=== PATIENT | female | born 2000 | race Caucasian/White ===

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

== ENCOUNTER 2019-07-19 10:18 | Emergency (ER) | payer OTHER ==
[2019-07-19 10:41] VITALS: BP 108/54
[2019-07-19] MEDS ORDERED: NORMAL SALINE 1000 ML 1,000 ML IV ONE (11:31)
--- NOTE | 2019-07-19 11:34 | ER Document Report ---
ED Medical Screen (RME) - General Chief Complaint: Abdominal Pain Stated Complaint: ABDOMINAL PAIN Time Seen by Provider: 07/19/19 11:24 Notes: Patient is a 18-year-old female who presents to the emergency department with a chief complaint of abdominal pain. Patient reports last night she had a spicy chicken sandwich from [employer]. Patient reports around 4 AM she woke up with right lower quadrant pain. Patient reports she has vomited once and had 4 episodes of diarrhea. Patient denies blood in the diarrhea reports this is more of a caramel liquidy color. Patient reports her last menstrual cycle was June 25. Patient denies vaginal bleeding or discharge. Patient reports her family did have similar symptoms with a stomach virus about 2 weeks ago. Patient reports that she has had similar discomfort in the past and was told she was having bowel spasming, but at that time she was not having vomiting or diarrhea. TRAVEL OUTSIDE OF THE [place] IN LAST 30 DAYS: No - Related Data Allergies/Adverse Reactions: No Known Allergies Allergy (Verified 04/14/17 11:23) Past Medical History Renal/ Medical History: Denies: Hx Peritoneal Dialysis Past Surgical History: Reports: Hx Myringotomy - Immunizations Immunizations up to date: Yes Hx Diphtheria, Pertussis, Tetanus Vaccination: Yes Physical Exam - Vital signs Vitals: Temp Pulse Resp BP Pulse Ox 98.1 F 95 20 108/54 L 100 07/19/19 10:40 07/19/19 10:40 07/19/19 10:40 07/19/19 10:40 07/19/19 10:40 - Abdominal Inspection: Normal Distension: No distension Bowel sounds: Normal Tenderness: Tender - Right mid abdominal tenderness with palpation. Organomegaly: No organomegaly Course - Re-evaluation Re-evalutation: 07/19/19 11:34 We will obtain basic labs as well as urinalysis and urine . Will initiate IV fluids. Patient will require a thorough abdominal examination when placed into a room. I have greeted and performed a rapid initial assessment of this patient. A comprehensive ED assessment and evaluation of the patient, analysis of test results and completion of the medical decision making process will be conducted by additional ED providers. - Vital Signs Vital signs: Temp Pulse Resp BP Pulse Ox 98.1 F 95 20 108/54 L 100 07/19/19 10:40 07/19/19 10:40 07/19/19 10:40 07/19/19 10:40 07/19/19 10:40
[2019-07-19 12:21] LABS: HEMATOCRIT 45.7 % (36.0-47.0); HEMOGLOBIN 15.5 g/dL (12.0-15.5); MEAN CORPUSCULAR HEMOGLOBIN 30.2 pg (27.0-33.4); MEAN CORPUSCULAR VOLUME 89 fl (80-97); PLATELET COUNT 215 10^3/uL (150-450); RED BLOOD COUNT 5.15 10^6/uL (3.72-5.28); RED CELL DISTRIBUTION WIDTH 12.7 % (11.5-14.0); WHITE BLOOD COUNT 11.7 10^3/uL (4.0-10.5)
[2019-07-19 12:31] LABS: APPEARANCE,URINE CLOUDY; BILIRUBIN,URINE NEGATIVE (NEGATIVE); COLOR,URINE AMBER; GLUCOSE, URINE NEGATIVE (NEGATIVE); KETONES,URINE 20 mg/dL (NEGATIVE); LEUKOCYTE ESTERASE,URINE MODERATE (NEGATIVE); NITRITE,URINE NEGATIVE (NEGATIVE); PROTEIN,URINE 100 mg/dL (NEGATIVE); URINE SPECIFIC GRAVITY 1.035; UROBILINOGEN,URINE NEGATIVE mg/dL (<2.0)
[2019-07-19 12:37] LABS: ALKALINE PHOSPHATASE 69 U/L (38-126); ANION GAP 12 (5-19); ASPARTATE AMINO TRANSFERASE 26 U/L (14-36); BILIRUBIN,TOTAL 1.7 mg/dL (0.2-1.3); BLOOD UREA NITROGEN 15 mg/dL (7-20); CALCIUM 10.1 mg/dL (8.4-10.2); CARBON DIOXIDE 26 mmol/L (22-30); CHLORIDE 103 mmol/L (98-107); GLUCOSE 104 mg/dL (75-110); POTASSIUM 4.8 mmol/L (3.6-5.0); TOTAL PROTEIN 7.8 g/dL (6.3-8.2)
[2019-07-19 12:44] LABS: ABSOLUTE LYMPHOCYTES# (MANUAL) 0.2 10^3/uL (0.5-4.7); ABSOLUTE MONOCYTES # (MANUAL) 0.6 10^3/uL (0.1-1.4); BASOPHILS % (MANUAL) 0 % (0-2); EOSINOPHILS % (MANUAL) 1 % (0-6); LYMPHOCYTES % (MANUAL) 2 % (13-45); MONOCYTES % (MANUAL) 5 % (3-13); SEGMENTED NEUTROPHILS % (MAN) 92 % (42-78); TOTAL CELLS COUNTED 100
[2019-07-19 12:45] LABS: PLATELET COMMENT ADEQUATE
[2019-07-19] MEDS ORDERED: KETOROLAC TROMETHAMINE INJ/PF 30 MG/1 ML SDV IV ONE (13:31)
[2019-07-19] MEDS ORDERED: CEFTRIAXONE INJ 1000 MG VIAL IV ONE (13:32)
--- NOTE | 2019-07-19 13:39 | ER Document Report ---
ED General - General Chief Complaint: Abdominal Pain Stated Complaint: ABDOMINAL PAIN Time Seen by Provider: 07/19/19 11:24 Primary Care Provider: MEME RONQUILLO MD [Primary Care Provider] - Follow up as needed Mode of Arrival: Ambulatory Information source: Parent Notes: 18-year-old female arrives by POV with her mother's courtesy car driver. Patient reports she awoke at 0400 with vomiting x4 and diarrhea x4. Patient had similar symptoms 2 weeks ago without vomiting or diarrhea but only cramping belly. She points to her right lower quadrant as being mainly painful. She still has her appendix. Her sister who lives in [place] had a virus 2 weeks ago with nausea vomiting diarrhea and abdominal pain but patient otherwise was not experiencing the same symptoms. The patient ate the same foods everyone else ate over the past 2 days. Patient denies any sore throat bloody diarrhea but reports her stools are liquidy and syrupy. She denies any dysuria. CBC and CMP and urinalysis were done prior to my arrival with positive UTI and elevated WBC count. TRAVEL OUTSIDE OF THE [place] IN LAST 30 DAYS: No COUNTRY TRAVELED TO/FROM: No foreign travel or exposure to foreign individuals or sick people other than sister - HPI Onset: This morning Onset/Duration: Sudden Quality of pain: Achy Severity: Moderate Pain Level: 5 Associated symptoms: Diarrhea, Vomiting Exacerbated by: Standing - The Relieved by: Remaining still Similar symptoms previously: No Recently seen / treated by doctor: No - Related Data Allergies/Adverse Reactions: No Known Allergies Allergy (Verified 04/14/17 11:23) Past Medical History - General Information source: Patient - With no, Parent - Parent as courtesy car driver - Social History Smoking Status: Unknown if Ever Smoked Cigarette use (# per day): No Chew tobacco use (# tins/day): No Smoking Education Provided: No Frequency of alcohol use: None Drug Abuse: None Lives with: Family Family History: Arthritis, CAD, Hyperlipidemia, Hypertension, Malignancy Patient has suicidal ideation: No Patient has homicidal ideation: No - Past Medical History Cardiac Medical History: Reports: None Pulmonary Medical History: Reports: None EENT Medical History: Reports: None Neurological Medical History: Reports: None Endocrine Medical History: Reports: None Renal/ Medical History: Reports: None. Denies: Hx Peritoneal Dialysis Malignancy Medical History: Reports: None GI Medical History: Reports: None Musculoskeletal Medical History: Reports None Skin Medical History: Reports None Past Surgical History: Reports: Hx Myringotomy - Immunizations Immunizations up to date: Yes Hx Diphtheria, Pertussis, Tetanus Vaccination: Yes Review of Systems - Review of Systems Constitutional: Malaise, Weakness EENT: No symptoms reported Cardiovascular: No symptoms reported Respiratory: No symptoms reported Gastrointestinal: Abdominal pain, Diarrhea, Nausea, Vomiting, Poor appetite Genitourinary: No symptoms reported Female Genitourinary: No symptoms reported Musculoskeletal: No symptoms reported Skin: No symptoms reported Hematologic/Lymphatic: No symptoms reported Neurological/Psychological: No symptoms reported Physical Exam - Vital signs Vitals: Temp Pulse Resp BP Pulse Ox 98.1 F 95 20 108/54 L 100 07/19/19 10:40 07/19/19 10:40 07/19/19 10:40 07/19/19 10:40 07/19/19 10:40 Interpretation: Normal - General General appearance: Alert In distress: None - Respiratory Respiratory status: No respiratory distress Chest status: Nontender Breath sounds: Normal Chest palpation: Normal - Cardiovascular Rhythm: Regular Heart sounds: Normal auscultation Murmur: No Friction rub: No Mayuri's crunch: No - Abdominal Inspection: Normal Distension: No distension Bowel sounds: Hyperactive Tenderness: Tender, Other - Right lower quadrant abdominal pain with negative psoas or obturator sign - Back Back: Normal - Extremities General upper extremity: Normal inspection General lower extremity: Normal inspection - Neurological Neuro grossly intact: Yes Cognition: Normal Orientation: AAOx4 Carlos Coma Scale Eye Opening: Spontaneous Carlos Coma Scale Verbal: Oriented Course - Vital Signs Vital signs: Temp Pulse Resp BP Pulse Ox 98.1 F 95 20 108/54 L 100 07/19/19 10:40 07/19/19 10:40 07/19/19 10:40 07/19/19 10:40 07/19/19 10:40 - Laboratory Result Diagrams: 07/19/19 12:12 07/19/19 12:12 Laboratory results interpreted by me: 07/19/19 07/19/19 07/19/19 12:12 12:12 12:12 WBC 11.7 H Seg Neuts % (Manual) 92 H Lymphocytes % (Manual) 2 L Abs Neuts (Manual) 10.8 H Abs Lymphs (Manual) 0.2 L Total Bilirubin 1.7 H Urine Protein 100 H Urine Ketones 20 H Ur Leukocyte Esterase MODERATE H - Diagnostic Test Radiology reviewed: Reports reviewed - CT results as per radiology with enterocolitis Critical Care Note - Critical Care Note Total time excluding time spent on procedures (mins): 90 Comments: Patient was advised to off work off school and also no milk or meat products for 24 hours and Discharge - Discharge Clinical Impression: Gastroenteritis, Gastroenteritis due to norovirus Abdominal pain Qualifiers: Abdominal location: right lower quadrant Qualified Code(s): R10.31 - Right lower quadrant pain UTI (urinary tract infection) Qualifiers: Urinary tract infection type: site unspecified Hematuria presence: without hematuria Qualified Code(s): N39.0 - Urinary tract infection, site not specified Condition: Good Disposition: HOME, SELF-CARE Additional Instructions: Avoid milk and meat products for 24 hours; adhere to brat diet bananas rice applesauce toast caridad cody crackers; avoid contacts for at least 1 to 3 weeks b ecause of viral shedding from norovirus; take medicines as directed and off school off work as directed; get urine rechecked for UTI late this week Prescriptions: Lactobacillus Acidophilus/Pect [Acidophilus-Pectin Capsule] 1 each PO BID PRN #1 bottle PRN Reason: Ondansetron [Zofran Odt 4 mg Tablet] 1 - 2 tab PO Q4H PRN #15 tab.rapdis PRN Reason: For Nausea/Vomiting Forms: Return to Work, Return to School Referrals: MEME RONQUILLO MD [Primary Care Provider] - Follow up as needed
--- NOTE | 2019-07-19 14:47 | RADIOLOGY REPORT (SQ) ---
EXAM DESCRIPTION: CT ABD/PELVIS WITH IV ONLY COMPLETED DATE/TIME: 07/19/2019 2:18 pm REASON FOR STUDY: pain COMPARISON: None. TECHNIQUE: CT scan of the abdomen and pelvis performed using helical scanning technique with dynamic intravenous contrast injection. No oral contrast. Images reviewed with lung, soft tissue, and bone windows. Reconstructed coronal and sagittal MPR images reviewed. Delayed images for evaluation of the urinary system also acquired. All images stored on PACS. All CT scanners at this facility use dose modulation, iterative reconstruction, and/or weight based d osing when appropriate to reduce radiation dose to as low as reasonably achievable (ALARA). [facility]: Dose Right [facility]: CareDose [facility]: Dose Right [facility]: Teradose 4D [facility]: PATHEOS CONTRAST TYPE AND DOSE: contrast/concentration: Isovue 350.00 mg/ml; Total Contrast Delivered: 73.0 ml; Total Saline Delivered: 66.0 ml 73 mL Isovue 350- low osmolar. RENAL FUNCTION: BUN 15, creatinine 0.94 RADIATION DOSE: CT Rad equipment meets quality standard of care and radiation dose reduction techniq ues were employed. CTDIvol: 5.3 - 6.5 mGy. DLP: 641 mGy-cm.. LIMITATIONS: None. FINDINGS: LOWER CHEST: No significant findings. No nodules or infiltrates. LIVER: Normal size. No masses. No dilated ducts. SPLEEN: Normal size. No focal lesions. PANCREAS: No masses. No significant calcifications. No adjacent inflammation or peripancreatic fluid collections. Pancreatic duct not dilated. GALLBLADDER: No identified stones by CT criteria. No inflammatory changes to suggest cholecystitis. ADRENAL GLANDS: No significant masses or asymmetry. RIGHT KIDNEY AND URETER: No solid masses. No significant calcifications. No hydronephrosis or hyd roureter. LEFT KIDNEY AND URETER: No solid masses. No significant calcifications. No hydronephrosis or hydr oureter. AORTA AND VESSELS: No aneurysm. No dissection. Renal arteries, SMA, celiac without stenosis. RETROPERITONEUM: No retroperitoneal adenopathy, hemorrhage or masses. BOWEL AND PERITONEAL CAVITY: Diffuse fluid-filled loops of mildly distended small bowel, several of w hich contain air-fluid levels. No appreciable transition point. Fluid-filled nondistended large bow el from the ascending colon to the splenic flexure. No significant bowel wall thickening or enhancem ent. No mesenteric inflammatory fat stranding. No free fluid or splenomegaly. APPENDIX: Normal. PELVIS: No mass. No free fluid. Normal bladder. ABDOMINAL WALL: No masses. No hernias. BONES: No significant or acute findings. OTHER: No other significant finding. IMPRESSION: Fluid-filled small and large bowel, suggestive of enterocolitis. No obvious findings of bowel obstruction. TECHNICAL DOCUMENTATION: JOB ID: [id number] Quality ID # [id number]: Final reports with documentation of one or more dose reduction techniques (e.g., Au tomated exposure control, adjustment of the mA and/or kV according to patient size, use of iterative reconstruction technique) 2010 [employer]- All Rights Reserved Reading location - IP/workstation name: [email or web address]
== END 2019-07-19 16:24 | disposition home or self-care (01) ==
LOC: ER 10:18
DX: A08.11 Acute gastroenteropathy due to Norwalk agent (principal); N39.0 Urinary tract infection, site not specified; R10.31 Right lower quadrant pain; R19.7 Diarrhea, unspecified; R53.81 Other malaise; R53.1 Weakness; R11.2 Nausea with vomiting, unspecified; R63.0 Anorexia
CPT/HCPCS: 99285; 96361; 96375; 96365; 36415; 83690; 85025; 81025; 80053; 81001; 74177; J1885; J0696; J7030